=== PATIENT | female | born 2000 | race Caucasian/White ===

== ENCOUNTER → 2021-01-04 15:47 | Outpatient (CLI) | payer OTHER, SELFPAY ==
--- NOTE | ~2021-01-04 | XR_ITS ---
EXAMINATION: XR chest 2V 01/04/2021 16:06 INDICATION: Dyspnea. Cough. PROCEDURE: 2 view chest COMPARISON: No prior studies for comparison. FINDINGS: The lungs are clear. The cardiomediastinal silhouette is within normal limits. There are no pleural effusions. There is no pneumothorax suspected. IMPRESSION: 1: NO ACUTE CARDIOPULMONARY DISEASE. Reviewed, dictated and finalized at location B.
== END ==
PROVIDERS: PCP Family Medicine; Visit Provider Family Medicine
DX: R06.00 Dyspnea, unspecified (principal)
CPT/HCPCS: 71046

== ENCOUNTER 2021-01-15 07:41 | Emergency (ER) | payer OTHER, SELFPAY ==
--- NOTE | ~2021-01-15 | CT_ITS ---
EXAMINATION: CT abdomen pelvis w con EXAM DATE: 01/15/2021 09:05 INDICATION: Abdominal pain, vomiting, diarrhea. Diagnosed with pneumonia last week. TECHNIQUE: Spiral CT of the abdomen and pelvis was performed following intravenous injection of 100 m L Omnipaque 350. Axial, coronal and sagittal images were reviewed. The dose-length product (DLP) fo r this examination was 546.83 mGy-cm. The exposure was tailored according to patient size (auto mA e xposure control), and iterative reconstruction (ASIR) was used as additional dose reduction technique . There is no prior study for comparison. FINDINGS: The liver, spleen, adrenal glands and pancreas are unremarkable. There is a deep gallbladd er fossa, most of it surrounded by liver, congenital appearance. No calcified cholelithiasis. Portal and splenic veins are patent. Kidneys enhance symmetrically. There is no hydronephrosis. The [place]ern[place] is anteverted and morphologically normal. The bladder is unremarkable. There is no retroperito liya or pelvic lymphadenopathy. There are no findings to suggest appendicitis. The stomach and small bowel are unremarkable. There is colonic fluid, correlate for diarrhea. No evidence of colonic wall edema. Consider gastroenteritis . No free intraperitoneal gas. The heart is normal in size. There are no pericardial or pleural effusions. The lung bases are unremarkable. The bones are unremarkable. IMPRESSION: Colonic fluid, consider gastroenteritis. Reviewed, dictated and finalized at location A.
--- NOTE | ~2021-01-15 | XR_ITS ---
EXAMINATION: XR chest 1V portable DATE: 01/15/2021 08:36 INDICATION: Cough. Nausea. TECHNIQUE: A single frontal view of the chest was obtained. COMPARISON: Chest 2 views 01/04/2021 FINDINGS: The chest demonstrates clear lungs without pneumonia, pleural effusion, or pneumothorax. Th e heart size is normal. IMPRESSION: 1. No acute cardiopulmonary disease. Reviewed, dictated and finalized at location A.
[2021-01-15 07:49] VITALS: BP 132/86; PULSE 89; RESP 22; TEMP 36.5; O2SAT 95
--- NOTE | 2021-01-15 07:50 | ED.ABDPAIN ---
HPI - Abdominal Pain General Chief Complaint: Abdominal Pain Stated Complaint: vomiting Time Seen by Provider: 01/15/21 07:50 Source: patient and family Mode of arrival: ambulatory Limitations: no limitations History of Present Illness HPI narrative: Patient is a 20-year-old female who presents for evaluation of nausea, vomiting and diarrhea. Patient states she began to have nausea and vomiting around 11 PM yesterday evening, which persisted overnight into this morning. She has had numerous episodes of nonbloody, nonbilious emesis. She denies fever, she reports generalized abdominal pain throughout her stomach which is cramping in nature. No radiation of the pain to the back. She also reports watery diarrhea without blood or mucus. Patient denies recent sick contacts. She states she did eat [place] food last night and is possibly attributing her symptoms to that. Her mother also states that last week she was complaining of a cough and was diagnosed with pneumonia at her primary care physician's office. She did not end up picking up her antibiotic and has not been treated for this. She has not been swabbed for Covid. No recent travel. Patient does report rhinorrhea but denies sore throat. She reports general malaise. Related Data Home Medications Medication Instructions Recorded Confirmed norgestimate 0.25 mg-ethinyl 1 tablet PO DAILY 10/28/19 estradiol 35 mcg tablet bupropion HCl 150 mg 24 hr tablet, 150 mg PO QAM 01/04/21 extended release Allergies Allergy/AdvReac Type Severity Reaction Status Date / Time hydrocodone AdvReac Unknown rash Verified 01/15/21 08:29 Review of Systems Review of Systems: Narrative: CONSTITUTIONAL: Denies fever, chills ENT:Reports rhinorrhea and congestion CARDIOVASCULAR: Denies chest pain RESPIRATORY: Denies cough or dyspnea. GASTROINTESTINAL: Reports abdominal pain, nausea, vomiting, and diarrhea GENITOURINARY: Denies dysuria or hematuria. Denies pelvic pain. SKIN: Denies rash or itching. MUSCULOSKELETAL: Denies back pain, joint pain, or myalgia. NEUROLOGIC: Denies headache, numbness, or weakness. [facility] Past Medical History Medical History (Updated 01/15/21 @ 09:55 by Hyacinth Villanueva MD) Anemia Eczema Vitamin B12 deficiency Vitamin D deficiency Family History Family History Other Depression Glaucoma Malignant neoplasm of prostate Social History Social History Smoking status: Never smoker Second hand tobacco smoke exposure: No Alcohol intake: never Substance use: never Exam Narrative: Exam Narrative: GENERAL: Awake, alert,actively vomiting in room HEAD: Normocephalic, atraumatic. EYES: PERRLA and EOMI. ENT: Nares clear, no rhinorrhea or epistaxis. Mucous membranes dry NECK: Supple. CHEST: No respiratory distress, breathing even and non labored HEART: Regular rate, sinus rhythm ABDOMEN:Non distended, mildly tender in all 4 quadrants, no focal right lower quadrant abdominal pain, negative Zamarripa sign, no guarding, no rebound EXTREMITIES: Normal range of motion. No edema. SKIN: Warm, dry, no rash. NEURO:No focal deficits. Alert and oriented x3 Course Vital Signs Vital signs: Vital Signs Temperature 36.5 C 01/15/21 07:49 Pulse Rate 89 01/15/21 07:49 Respiratory Rate 22 H 01/15/21 07:49 Blood Pressure 132/86 01/15/21 07:49 Pulse Oximetry 95 01/15/21 07:49 Temperature 36.7 C 01/15/21 08:19 Pulse Rate 76 01/15/21 09:29 Respiratory Rate 16 01/15/21 09:29 Blood Pressure 119/48 L 01/15/21 09:29 Pulse Oximetry 98 01/15/21 09:29 MDM - Abdominal Pain MDM Narrative Medical decision making narrative: Patient presented for evaluation of nausea, vomiting and diarrhea. At the time of assessment, ABCs are intact and vital signs are stable. Patient does not have any focal abdominal pain but is tender in al
[2021-01-15] MEDS: SODIUM CHLORIDE 0.9% IV 1,000 ML 999 ML IV CONT ×2 (08:07→09:31)
[2021-01-15] MEDS: FAMOTIDINE 20 MG/2 ML VIAL IV PUSH (08:07)
[2021-01-15] MEDS: ONDANSETRON INJ 4 MG/2 ML VIAL IV PUSH (08:07)
[2021-01-15 08:19] VITALS: BP 121/80; PULSE 71; RESP 18; TEMP 36.7; O2SAT 100
[2021-01-15 08:22] LABS: Hematocrit 45.2 % (37.0-47.0); Hemoglobin 16.2 g/dL (12.0-15.0); Mean Corpuscular HGB Conc 35.8 g/dl (32-36); Mean Corpuscular Hemoglobin 30.7 pg (26-34); Mean Corpuscular Volume 85.6 fl (80-100); Mean Platelet Volume 10.1 fl (7.4-10.4); Platelet Count Result 209 k/mm3 (150-375); Red Blood Count 5.28 M/mm3 (4.2-5.4); Red Cell Distribution Width 12.6 % (11.5-14.5); White Blood Count 11.6 K/mm3 (4.5-10.0)
[2021-01-15 08:29] LABS: Add Urine Microscopic? YES; Appearance Urine Cloudy (Clear); Bilirubin Urine Negative (Negative); Blood Urine Negative (Negative); Color Urine Amber (Yellow); Glucose Urine UA Negative (Negative); Ketones Urine 1+ mg/dL (Negative); Leukocyte Esterase Ur Negative LEU/UL (Negative); Mucus Urine Few /lpf; Nitrate Urine Negative (Negative); Protein Urine 2+ mg/dL (Negative); RBC Urine 0-2 /hpf (0-2); Squamous Epithelial Cell Urine Few /hpf (Few); Urobilinogen Urine Negative mg/dL (<2.0); WBC Urine 0-3 /hpf
[2021-01-15 08:35] LABS: Alanine Aminotransferase 22 U/L (4-35); Albumin Level 4.6 g/dL (3.7-5.6); Alkaline Phosphatase 74 U/L (45-116); Anion Gap 12 mmol/L (8-16); Aspartate Amino Transferase 26 U/L (14-36); Bilirubin,Total 2.5 mg/dL (0.2-1.3); Blood Urea Nitrogen 14 mg/dL (8-21); Calcium 9.4 mg/dL (8.9-10.7); Carbon Dioxide 20 mmol/L (22-30); Chloride 104 mmol/L (98-107); Estimated CRCL calculation 154 ml/min; Estimated Glomerular Filt Rate > 60; Glucose 166 mg/dL (65-105); Lipase 24 U/L (23-300); Sodium 136 mmol/L (134-143)
[2021-01-15 08:46] LABS: Band Neutrophils Percent 3 % (0-6); Eosinophils Absolute Manual 0.11 K/mm3 (0.02-0.5); Eosinophils Percent Manual 1 % (0-4); Lymphocytes Absolute Manual 0.58 K/mm3 (1.1-4.5); Monocytes Absolute Manual 0.23 K/mm3 (0.1-0.90); Monocytes Percent Manual 2 % (3-9); Neutrophils Absolute Manual 10.67 K/mm3 (1.7-7.2); Neutrophils Percent Manual 89 % (46-73); Total Cells Counted 100
[2021-01-15 08:47] LABS: Platelet Estimate Adequate (Adequate)
[2021-01-15 08:49] LABS: Specific Grav Ur 1.032 (1.001-1.035)
[2021-01-15 09:10] LABS: Glucose Point of Care 153 (65-105)
[2021-01-15 09:29] VITALS: BP 119/48; PULSE 76; RESP 16; O2SAT 98
[2021-01-15] MEDS: MORPHINE SULFATE (*CRX) 2 MG/ML INJ IV PUSH (09:30)
[2021-01-15] MEDS: diphenhydrAMINE HCl INJ 50 MG/ML VIAL 25 MG IV PUSH (09:31)
[2021-01-15] MEDS: METOCLOPRAMIDE HCL INJ 10 MG/2 ML VIAL IV PUSH (09:32)
[2021-01-15 19:03] LABS: SARS-CoV-2 RNA PCR Negative
== END 2021-01-15 11:18 | disposition home or self-care (01) ==
PROVIDERS: Emergency Provider Emergency Medicine; PCP Family Medicine
DX: Z20.822 Contact with and (suspected) exposure to COVID-19 (principal); K52.9 Noninfective gastroenteritis and colitis, unspecified
CPT/HCPCS: 36415; 71045; 74177; 80053; 81001; 81025; 83690; 85025; 96365; 96375; 99284; C9803; J0131; J1200; J2270; J2405; J2765; J7030; Q9967; U0003; U0005

== ENCOUNTER 2021-01-17 12:20 | Emergency (ER) | payer OTHER, SELFPAY ==
[2021-01-17 12:25] VITALS: BP 127/98; PULSE 57; RESP 18; TEMP 36.3; O2SAT 99
[2021-01-17 12:48] LABS: Basophils Percent Auto 0.2 % (0.2-1.2); Eosinophils Absolute Auto 0.1 K/mm3 (0-0.3); Eosinophils Percent Auto 0.5 % (0-4.4); Hematocrit 41.7 % (37.0-47.0); Hemoglobin 14.7 g/dL (12.0-15.0); Immature Granulocyte Absolute 0.03 K/mm3 (0.00-0.031); Immature Granulocyte Percent A 0.3 % (0-0.5); Lymphocytes Absolute Auto 1.27 K/mm3 (0.9-3.2); Lymphocytes Percent Auto 11.5 % (18.3-44.2); Mean Corpuscular HGB Conc 35.3 g/dl (32-36); Mean Corpuscular Hemoglobin 30.7 pg (26-34); Mean Corpuscular Volume 87.1 fl (80-100); Mean Platelet Volume 10.1 fl (7.4-10.4); Monocytes Absolute Auto 0.7 K/mm3 (0.1-0.6); Monocytes Percent Auto 6.5 % (2.6-8.5); Neutrophils Absolute Auto 8.9 K/mm3 (1.3-6.7); Platelet Count Result 194 k/mm3 (150-375); Red Blood Count 4.79 M/mm3 (4.2-5.4); Red Cell Distribution Width 12.6 % (11.5-14.5)
[2021-01-17] MEDS: SODIUM CHLORIDE 0.9% IV 1,000 ML 999 ML IV CONT (12:58)
[2021-01-17] MEDS: ONDANSETRON INJ 4 MG/2 ML VIAL IV PUSH (12:59)
[2021-01-17] MEDS: FAMOTIDINE 20 MG/2 ML VIAL IV PUSH ×2 (12:59→14:13)
[2021-01-17 13:17] LABS: Alanine Aminotransferase 22 U/L (4-35); Albumin Level 4.1 g/dL (3.7-5.6); Alkaline Phosphatase 62 U/L (45-116); Anion Gap 8 mmol/L (8-16); Aspartate Amino Transferase 29 U/L (14-36); Bilirubin,Total 0.8 mg/dL (0.2-1.3); Blood Urea Nitrogen 9 mg/dL (8-21); Calcium 8.8 mg/dL (8.9-10.7); Carbon Dioxide 25 mmol/L (22-30); Chloride 107 mmol/L (98-107); Estimated CRCL calculation 125 ml/min; Estimated Glomerular Filt Rate > 60; Glucose 91 mg/dL (65-105); Lipase 40 U/L (23-300); Potassium 3.6 mmol/L (3.4-5.0); Sodium 140 mmol/L (134-143)
[2021-01-17 13:23] LABS: Add Urine Microscopic? YES; Appearance Urine Cloudy (Clear); Bilirubin Urine Negative (Negative); Blood Urine Negative (Negative); Color Urine Yellow (Yellow); Glucose Urine UA Negative (Negative); Ketones Urine 2+ mg/dL (Negative); Leukocyte Esterase Ur Negative LEU/UL (Negative); Mucus Urine Rare /lpf; Nitrate Urine Negative (Negative); Protein Urine Negative (Negative); RBC Urine 0-2 /hpf (0-2); Specific Grav Ur 1.021 (1.001-1.035); Squamous Epithelial Cell Urine Few /hpf (Few); WBC Urine 0-3 /hpf
[2021-01-17] MEDS: METOCLOPRAMIDE HCL INJ 10 MG/2 ML VIAL IV PUSH (14:11)
[2021-01-17] MEDS: DEXTROSE 5%/0.45% SOD CHL 1,000 ML 999 ML IV CONT (14:15)
[2021-01-17 14:16] VITALS: BP 111/96; PULSE 77; RESP 16; O2SAT 100
--- NOTE | 2021-01-17 14:56 | ED.GENADULT ---
HPI - General Adult General Chief complaint: Nausea/Vomiting/Diarrhea <TRAN Barcenas Last Filed: 01/17/21 15:30> Stated complaint: Vomiting <TRAN Barcenas Last Filed: 01/17/21 15:30> Time Seen by Provider: 01/17/21 12:24 <TRAN Barcenas Last Filed: 01/17/21 15:30> Source: patient, family and old records reviewed <TRAN Barcenas Last Filed: 01/17/21 15:30> Mode of arrival: ambulatory <TRAN Barcenas Last Filed: 01/17/21 15:30> Limitations: no limitations <TRAN Barcenas Last Filed: 01/17/21 15:30> History of Present Illness HPI narrative: Patient is a 20-year-old female who presents to emergency department for evaluation of vomiting diarrhea that began after eating out at a [place] restaurant was in the early hours of Thursday morning she was seen in the ER had evaluation to include CAT scan and was tested for Covid was sent home with nausea medicine had an interval good day and then today began to have nausea again with cramping of the abdomen. Patient on arrival appears to be uncomfortable and is having intermittent emesis. Patient denies any URI symptoms vaginal bleeding discharge urinary symptoms or diarrhea has not had a bowel movement since Thursday. <Leonidas Grijalva PA-C - Last Filed: 01/17/21 15:30> Related Data Home medications: Home Medications Medication Instructions Recorded Confirmed norgestimate 0.25 mg-ethinyl 1 tablet PO DAILY 10/28/19 estradiol 35 mcg tablet bupropion HCl 150 mg 24 hr tablet, 150 mg PO QAM 01/04/21 extended release <TRAN Barcenas Last Filed: 01/17/21 15:30> Allergies/adverse reactions: Allergies Allergy/AdvReac Type Severity Reaction Status Date / Time hydrocodone Allergy Unknown rash Verified 01/17/21 14:09 <TRAN Barcenas Last Filed: 01/17/21 15:30> Review of Systems Review of Systems: All systems reviewed & are unremarkable except as noted in HPI and below <TRAN Barcenas Last Filed: 01/17/21 15:30> [facility] Past Medical History Medical History: Medical History (Updated 01/17/21 @ 15:07 by Leonidas Grijalva PA-C) Anemia Eczema Vitamin B12 deficiency Vitamin D deficiency <Leonidas Grijalva PA-C - Last Filed: 01/17/21 15:30> Family History Family History: Family History Other Depression Glaucoma Malignant neoplasm of prostate <Leonidas Grijalva PA-C - Last Filed: 01/17/21 15:30> Social History Social History: Social History Smoking status: Never smoker Second hand tobacco smoke exposure: No Alcohol intake: never Substance use: never <Leonidas Grijalva PA-C - Last Filed: 01/17/21 15:30> Exam Narrative: Exam Narrative: GENERAL: Ill-appearing, well-nourished, uncomfortable and in no acute distress. HEAD: Normocephalic, atraumatic. EYES: PERRLA and EOMI. ENT: Nares clear, no rhinorrhea or epistaxis. Mucous membranes moist. CHEST: Clear to auscultation. No respiratory distress. No wheezes rales or rhonchi HEART: Regular rate and rhythm. No murmur heard. Normal peripheral pulses. ABDOMEN: Soft, diffusely tender no rebound or guarding, nondistended EXTREMITIES: Normal range of motion. No edema. SKIN: Warm, dry, no rash. NEURO: No focal deficits. Alert and oriented x3. PSYCH: Normal mood and affect. <Leonidas Grijalva PA-C - Last Filed: 01/17/21 15:30> Course Course Emergency Course: Patient in the room aware of case findings treatment plan and diagnosis agreeing to follow-up as directed felt appropriate for outpatient reevaluation patient had marked improvement after hydration the Reglan seemed to help the most drastic improvement in condition after having Reglan tolerating p.o. intake. Patient was able to sleep and feels better. Patient afebrile nontoxic-appeari
[2021-01-17 16:01] VITALS: BP 118/65; PULSE 71; RESP 17; O2SAT 100
== END 2021-01-17 16:03 | disposition home or self-care (01) ==
PROVIDERS: Emergency Medicine Emergency Medical Services; Emergency Provider Emergency Medicine; PCP Family Medicine
DX: R11.2 Nausea with vomiting, unspecified (principal); Z86.2 Personal history of diseases of the blood and blood-forming organs and certain disorders involving the immune mechanism; E53.8 Deficiency of other specified B group vitamins; E55.9 Vitamin D deficiency, unspecified
CPT/HCPCS: 36415; 80053; 81001; 81025; 83690; 85025; 96361; 96374; 96375; 96376; 99284; J2405; J2765; J7030

== ENCOUNTER 2021-05-11 18:55 | Emergency (ER) | payer OTHER, SELFPAY ==
[2021-05-11 19:06] VITALS: BP 135/56; PULSE 85; RESP 20; TEMP 37.2; O2SAT 100
--- NOTE | 2021-05-11 19:11 | ED.FEMALEGU ---
HPI - Female Genitourinary General Chief complaint: Urogenital-Female Stated complaint: Tampon stuck Time Seen by Provider: 05/11/21 19:11 Source: patient and RN notes reviewed Mode of arrival: ambulatory Limitations: no limitations History of Present Illness HPI Narrative: 21-year-old female presents concern for possible retained tampon. Reports she recalls putting a tampon in approximately 7 days ago and she went swimming and thought she had taken it out. She realized today she had a nayak of foul-smelling clear vaginal fluid and felt part of the tampon in her vaginal canal. Reports she was unable to remove it. She denies any fever, body aches, chills, sweats, nausea, vomiting. MD elicited complaint: other (Foreign body) Related Data Home Medications Medication Instructions Recorded Confirmed norgestimate 0.25 mg-ethinyl 1 tablet PO DAILY 10/28/19 01/18/21 estradiol 35 mcg tablet Allergies Allergy/AdvReac Type Severity Reaction Status Date / Time hydrocodone Allergy Unknown rash Verified 05/11/21 19:21 Review of Systems Review of Systems: CONSTITUTIONAL: Denies malaise, chills, sweats, or fever. RESPIRATORY: Denies cough or dyspnea. GASTROINTESTINAL: Denies abdominal pain, nausea, vomiting, diarrhea, bloody, or mucous stools. GENITOURINARY: Denies dysuria or hematuria. Reports retained vaginal tampon MUSCULOSKELETAL: Denies myalgia. All systems reviewed & are unremarkable except as noted in HPI and below PMFSH Past Medical History Medical History (Updated 05/11/21 @ 19:22 by Janneth Solitario NP) Anemia Eczema Vitamin B12 deficiency Vitamin D deficiency Family History Family History Other Depression Glaucoma Malignant neoplasm of prostate Social History Social History Smoking status: Never smoker Second hand tobacco smoke exposure: No Alcohol intake: never Substance use: never Comments At time of signature, agree with nursing past medical, surgical, social and family history. There is no relevant family history pertinent to the presenting complaint Exam Narrative: GENERAL: Well-appearing, well-nourished, and in no acute distress. HEAD: Normocephalic. EYES: PERRLA, conjunctivae clear. NECK: Supple. No lymphadenopathy CHEST: Clear to auscultation. No respiratory distress. HEART: Regular rate and rhythm. ABDOMEN: Soft, nontender upon palpation, nondistended, normal active bowel sounds, no palpable or pulsatile masses, no guarding. SKIN: Warm, dry, no rash. NEURO: Alert and oriented x3. PSYCH: Normal mood and affect : External Female Exam: normal external appearance Speculum Exam - Vagina: normal appearance of the vagina, normal palpation and foreign body (Retained tampon removed using forceps, no further foreign body noted) Speculum Exam - Cervix: normal appearance of the cervix Bimanual exam- vagina & uterus: normal bimanual exam Course Course Emergency Course: Patient is aware of diagnosis, understands and agrees to treatment plan. Anticipatory guidance given. Patient agrees to follow-up as directed and is aware of reasons to seek care at the emergency department. Portions of this record may have been created with voice recognition software Vital Signs Vital signs: Vital Signs Temperature 98.9 F 05/11/21 19:06 Pulse Rate 85 05/11/21 19:06 Respiratory Rate 20 05/11/21 19:06 Blood Pressure 135/56 L 05/11/21 19:06 Pulse Oximetry 100 05/11/21 19:06 Temperature 98.9 F 05/11/21 19:06 Pulse Rate 85 05/11/21 19:06 Respiratory Rate 20 05/11/21 19:06 Blood Pressure 135/56 L 05/11/21 19:06 Pulse Oximetry 100 05/11/21 19:06 Reviewed. MDM - Female Genitourinary MDM Narrative Medical decision making narrative: Exam findings show no acute concerns or changes; patient is non-toxic appearing and is in no distress. Patient is micki
== END 2021-05-11 19:29 | disposition home or self-care (01) ==
PROVIDERS: Emergency Provider Nurse Practitioner; PCP Family Medicine
DX: T19.2XXA Foreign body in vulva and vagina, initial encounter (principal); X58.XXXA Exposure to other specified factors, initial encounter
CPT/HCPCS: 99212; G0463

== ENCOUNTER 2021-06-25 18:50 | Emergency (ER) | payer OTHER, SELFPAY ==
[2021-06-25 19:04] VITALS: BP 130/66; PULSE 85; RESP 16; TEMP 36.9; O2SAT 100
--- NOTE | 2021-06-25 19:40 | ED.HEATRA ---
HPI - Head Injury General Chief complaint: Head Injury Stated complaint: Hit back of head Time Seen by Provider: 06/25/21 19:40 Source: patient, family and RN notes reviewed Mode of arrival: ambulatory Limitations: no limitations History of Present Illness HPI Narrative: 21 year old female who presents to [facility] care with complaint of being hit in the back of the head by dog gate today and had became dizzy when it happened nauseated and vision blurred and has had a head ache all day. Patient denies any dizziness, nausea visual disturbances, or any difficulty with walking at this time. She states no loss of consciousness at time of injury which was 10am this morning. Patient states that she continues to have some headache discomfort but has decreased in intensity. MD Complaint: head injury Related Data Home Medications Medication Instructions Recorded Confirmed norgestimate 0.25 mg-ethinyl 1 tablet PO DAILY 10/28/19 05/11/21 estradiol 35 mcg tablet Allergies Allergy/AdvReac Type Severity Reaction Status Date / Time hydrocodone Allergy Unknown rash Verified 05/11/21 19:21 Review of Systems Review of Systems: CONSTITUTIONAL: Denies fever, chills, or sweats. EYES: Denies visual changes, redness, or discharge. ENT: Denies rhinorrhea, congestion, sore throat, or otalgia. CARDIOVASCULAR: Denies chest pain, palpitations, or edema. RESPIRATORY: Denies cough or dyspnea. GASTROINTESTINAL: Denies abdominal pain, nausea, vomiting, or diarrhea. GENITOURINARY: Denies dysuria or hematuria. SKIN: Denies rash or itching. MUSCULOSKELETAL: Denies back pain, joint pain, or myalgia. NEUROLOGIC: Positive occipital area headache no numbness or weakness or present dizziness PSYCHIATRIC: Denies anxiety or depression. All systems reviewed & are unremarkable except as noted in HPI and below PMFSH Past Medical History Medical History Anemia Eczema Vitamin B12 deficiency Vitamin D deficiency Family History Family History Other Depression Glaucoma Malignant neoplasm of prostate Social History Social History Smoking status: Never smoker Second hand tobacco smoke exposure: No Alcohol intake: never Substance use: never Comments At time of signature, agree with nursing past medical, surgical, social and family history. There is no relevant family history pertinent to the presenting complaint Exam Narrative: GENERAL: Well-appearing, well-nourished, and in no acute distress. HEAD: Normocephalic, atraumatic.tender area to posterior head with no break in skin or swelling noted EYES: PERRLA and EOMI.no nystagmus ENT: Nares clear, no rhinorrhea or epistaxis. Mucous membranes moist. NECK: Supple.no lymphadenopathy, moves neck without pain CHEST: Clear to auscultation. No respiratory distress.SAO2 100% on room air HEART: Regular rate and rhythm. No murmur heard. Normal peripheral pulses. ABDOMEN: Soft, nontender, nondistended, normal active bowel sounds. EXTREMITIES: Normal range of motion. No edema.gait steady able to walk on toes, heel and tandem walk without difficulty SKIN: Warm, dry, no rash. NEURO: No focal deficits. Alert and oriented x3.cranial nerves!!-X!! intact. Course Vital Signs Vital signs: Vital Signs Temperature 36.9 C 06/25/21 19:04 Pulse Rate 85 06/25/21 19:04 Respiratory Rate 16 06/25/21 19:04 Blood Pressure 130/66 06/25/21 19:04 Pulse Oximetry 100 06/25/21 19:04 Temperature 36.9 C 06/25/21 19:04 Pulse Rate 85 06/25/21 19:04 Respiratory Rate 16 06/25/21 19:04 Blood Pressure 130/66 06/25/21 19:04 Pulse Oximetry 100 06/25/21 19:04 MDM - Head Injury Differential Diagnosis Differential diagnosis: Likely concussion without loss of consciousness and other (headache,minor head truma, minor closed head injury
== END 2021-06-25 19:59 | disposition home or self-care (01) ==
PROVIDERS: Emergency Provider Registered Nurse; PCP Family Medicine
DX: S09.90XA Unspecified injury of head, initial encounter (principal); W22.8XXA Striking against or struck by other objects, initial encounter
CPT/HCPCS: 99213; G0463

== ENCOUNTER 2023-03-17 14:17 | Emergency (ER) | payer OTHER, SELFPAY ==
--- NOTE | ~2023-03-17 | XR_ITS ---
XR chest 2V DATE: 03/17/2023 14:58 INDICATION: Shortness of breath, cough. History of asthma. TECHNIQUE: 2 views COMPARISON: Portable AP chest on January 15, 2021 at 0828 hours FINDINGS: Normal heart size. No hilar or mediastinal enlargement. No pulmonary infiltrate or consolid ation, pleural effusion or pulmonary vascular congestion or pneumothorax. Included skeletal structure s are unremarkable. IMPRESSION: No active cardiopulmonary disease Reviewed, dictated and finalized at location L.
[2023-03-17 14:26] VITALS: BP 124/102; PULSE 101; RESP 20; TEMP 37.1; O2SAT 99
[2023-03-17 14:30] VITALS: BP 124/102; PULSE 101; RESP 20; TEMP 37.1; O2SAT 99
[2023-03-17] MEDS: methylPREDNISolone SOD SUCC 125 MG VIAL IM (14:57)
--- NOTE | 2023-03-17 15:01 | ED.GENADULT ---
HPI - General Adult General Chief complaint: Upper Respiratory Infection Stated complaint: Chest Congestion/Cough Source: patient Mode of arrival: ambulatory Limitations: no limitations History of Present Illness HPI narrative: Patient presents for evaluation of sick symptoms. She indicates last week she had some ?viral symptoms , more specifically sinus congestion and rhinorrhea. She now feels like her symptoms are ?settling in the chest . She has a cough, SOB, low grade fever and sore throat. She has a hx of asthma and has been using neb treatments several times per day and her albuterol inhaler 4-5 times per day. Her fiance currently has similar symptom. She does not smoke. Related Data Allergies Allergy/AdvReac Type Severity Reaction Status Date / Time hydrocodone Allergy Unknown rash Verified 03/17/23 14:28 Review of Systems Review of Systems: CONSTITUTIONAL: Reports fever. Denies chills, or sweats. EYES: Denies visual changes, redness, or discharge. ENT: Denies rhinorrhea, congestion, sore throat, or otalgia. CARDIOVASCULAR: Denies chest pain, palpitations, or edema. RESPIRATORY: Reports cough and SOB. GASTROINTESTINAL: Denies abdominal pain, nausea, vomiting, or diarrhea. GENITOURINARY: Denies dysuria or hematuria. SKIN: Denies rash or itching. MUSCULOSKELETAL: Denies back pain, joint pain, or myalgia. NEUROLOGIC: Denies headache, numbness, dizziness, or weakness. PSYCHIATRIC: Denies anxiety or depression. [facility] Past Medical History Medical History ADHD Anemia Eczema OCD (obsessive compulsive disorder) Vitamin B12 deficiency Vitamin D deficiency Surgical History Surgical History No pertinent past surgical history Family History Family History Other Depression Glaucoma Malignant neoplasm of prostate Social History Social History Smoking status: Never smoker Second hand tobacco smoke exposure: No Alcohol intake: never Substance use: never Substance use type: does not use Lack of Transportation: No Lack of Food: Never True Current Housing: I Have Housing Concerned About Future Housing: No Difficulty Paying Gas/Electric Bills: No Difficulty Paying for Meds: No Currently Unemployed: No Education: Bachelor's Degree Difficulty w/ Childcare or Family Care: No Living arrangements: with family Gender identity (if verbalized by the patient): Female Sexual Orientation (if Verbalized by the Patient): Straight or Heterosexual Spiritual care concerns: No Agree to blood products: Yes Exam Narrative: GENERAL: Well-appearing, well-nourished, and in no acute distress. HEAD: Normocephalic, atraumatic. EYES: PERRLA and EOMI. ENT: Nares clear, no rhinorrhea or epistaxis. Mucous membranes moist. Oropharynx without tonsillar hypertrophy exudate or other lesions. Bilateral TMs pearly silva nonbulging NECK: Supple. No adenopathy or masses. No carotid bruits or JVD CHEST:Mild wheezing in posterior lung cesar bilaterally. Cough present on exam HEART: Regular rate and rhythm. No murmur heard. Normal peripheral pulses. ABDOMEN: Soft, nontender, nondistended, normal active bowel sounds. EXTREMITIES: Normal range of motion. No edema. SKIN: Warm, dry, no rash. NEURO: No focal deficits. Alert and oriented x3. PSYCH: Normal mood and affect. Course Course Emergency Course: This is a 23-year-old female who presented for evaluation of sick symptoms. Declined any diagnostic testing outside of CXR. CXR negative. Exam consistent with asthma exacerbation. She declined neb treatment while here. She was given solumedrol. Will dc with prednisone. Follow up with primary provider outpatient and go to the ER for difficulty breathing. Pt
== END 2023-03-17 15:23 | disposition home or self-care (01) ==
PROVIDERS: Emergency Provider Nurse Practitioner; PCP Family Medicine
DX: J45.901 Unspecified asthma with (acute) exacerbation (principal); F42.9 Obsessive-compulsive disorder, unspecified
CPT/HCPCS: 71046; 96372; 99213; G0463; J2930